=== PATIENT | male | born 1995 | race African-American/Black ===

== ENCOUNTER 2019-05-12 05:56 | Emergency (ER) | payer OTHER ==
[~2019-05-12] VITALS: Ht 172.7 cm; Wt 77.1 kg
[2019-05-12] MEDS ORDERED: MOBIC15 MG PO (07:37)
[2019-05-12] MEDS ORDERED: CYCLOBENZAPRINE5 MG PO (07:37)
[2019-05-12 08:07] VITALS: BP 134/77
== END 2019-05-12 08:08 | disposition home or self-care (01) ==
LOC: ER 05:56
DX: S16.1XXA Strain of muscle, fascia and tendon at neck level, initial encounter (principal); G44.209 Tension-type headache, unspecified, not intractable; F17.210 Nicotine dependence, cigarettes, uncomplicated; V43.52XA Car driver injured in collision with other type car in traffic accident, initial encounter; Y93.89 Activity, other specified; Y92.89 Other specified places as the place of occurrence of the external cause; Y99.8 Other external cause status